=== PATIENT | male | born 1955 | race Caucasian/White ===

== ENCOUNTER 2018-01-06 16:32 | Emergency (ER) | payer SELFPAY ==
[~2018-01-06] VITALS: Ht 177.8 cm; Wt 102.1 kg
[2018-01-06 16:32] VITALS: BP 157/113
--- NOTE | 2018-01-06 18:54 | ED.ADGEN ---
Past History Past Medical History: Other Past Surgical History: Other Alcohol Use: Occasionally Drug Use: None Adult General Chief Complaint Chief Complaint ".. I was cutting a water melon.. and slice my Rt. thumb and nail..."..." I happen just before I came in..." HPI HPI Patient is a 62 year old male who presents with above hx and 3 cm laceration to right thumb nail. The laceration is shallow however does go through the nail and into the underlying nail soft tissue. Distal neurovascular intact. Patient does not return his last tetanus. Patient is ambidextrous. 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 No history immunosuppression. Normally healthy. Has follow-up primary care. Review of Systems Review of Systems Constitutional: Denies fever or chills [] Eyes: Denies change in visual acuity, redness, or eye pain [] HENT: Denies nasal congestion or sore throat [] Respiratory: Denies cough or shortness of breath [] Cardiovascular: No additional information not addressed in HPI [] GI: Denies abdominal pain, nausea, vomiting, bloody stools or diarrhea [] : Denies dysuria or hematuria [] Musculoskeletal: Denies back pain or joint pain [] Integument: Denies rash or skin lesions []complaints of laceration of right thumb nail Neurologic: Denies headache, focal weakness or sensory changes [] Endocrine: Denies polyuria or polydipsia [] All other systems were reviewed and found to be within normal limits, except as documented in this note. Family History Family History Noncontributory Current Medications Current Medications Current Medications Medications (Trade) Dose Ordered Sig/[facility] Start Time Stop Time Status Last Admin Dose Admin Tetanus/ Diphtheria Toxoids Adsorbed (Tenivac Vial) 0.5 ml ONCE ONCE 01/06/18 19:00 01/06/18 19:01 DC 01/06/18 19:06 0.5 ML See nursing for home meds Allergies Allergies Allergies Coded Allergies Type Severity Reaction Last Updated Verified Penicillins Allergy Unknown 01/06/18 Yes ibuprofen Allergy Unknown 01/06/18 Yes iodine Allergy Unknown 01/06/18 Yes Physical Exam Physical Exam Constitutional: Well developed, well nourished, no acute distress, non-toxic appearance. [] HENT: Normocephalic, atraumatic, bilateral external ears normal, oropharynx moist, no oral exudates, nose normal. [] Eyes: PERRLA, EOMI, conjunctiva normal, no discharge. [] Neck: Normal range of motion, no tenderness, supple, no stridor. [] Cardiovascular:Heart rate regular rhythm, no murmur [] Lungs & Thorax: Bilateral breath sounds clear to auscultation [] Abdomen: Bowel sounds normal, soft, no tenderness, no masses, no pulsatile masses. [] Skin: Warm, dry, no erythema, no rash. [] Laceration as per history of present illness Back: No tenderness, no CVA tenderness. [] Extremities: No tenderness, no cyanosis, no clubbing, ROM intact, no edema. [] Neurologic: Alert and oriented X 3, normal motor function, normal sensory function, no focal deficits noted. [] Psychologic: Affect normal, judgement normal, mood normal. [] Current Patient Data Vital Signs Vital Signs Date Time Temp Pulse Resp B/P (MAP) Pulse Ox O2 Delivery O2 Flow Rate FiO2 01/06/18 16:32 98.3 52 18 95 Room Air EKG EKG [] Radiology/Procedures Radiology/Procedures [] Course & Med Decision Making Course & Med Decision Making Pertinent Labs and Imaging studies reviewed. (See chart for details). Wound wash with surgical soap. Saline and peroxide. Application of tissue loose. And dressing applied. Keep laceration clean and dry. Do not apply ointment to laceration. Will dissolved to glue. The removed dressing becomes wet or dirty. Follow-up primary care. Monitor for infection. Patient informed he'll take a long time for the nail to grow out. Patient return if any concerns. [] Final Impression Final Impression 1. 3 cm laceration, thumb nail of right hand[] Dragon Disclaimer Dragon Disclaimer This electronic medical record was generated, in whole or in part, using a voice recognition dictation system. NIESHA CAMPOS MD Jan 06, 2018 18:54
[2018-01-06] MEDS ORDERED: TETANUS AND DIPHTHERIA TOX/PF 0.5 ML VIAL. VAX IM ONE (19:00)
== END 2018-01-06 19:10 | disposition home or self-care (01) ==
LOC: ER 16:32
DX: S61.011A Laceration without foreign body of right thumb without damage to nail, initial encounter (principal); Z88.0 Allergy status to penicillin; Z88.6 Allergy status to analgesic agent; Z91.041 Radiographic dye allergy status; W26.0XXA Contact with knife, initial encounter; Y93.89 Activity, other specified; Y92.89 Other specified places as the place of occurrence of the external cause; Y99.8 Other external cause status
CPT/HCPCS: 12002; 90471; 90714; 99283-25

== ENCOUNTER 2021-01-22 17:14 | Inpatient (IN) | payer OTHER ==
[~2021-01-22] VITALS: Ht 181.6 cm; Wt 113.2 kg
--- NOTE | 2021-01-22 17:37 | PHYS DOC ---
Past History Past Medical History: No Pertinent History, Other (BRODERICK PAN DO) Past Surgical History: Other (BRODERICK PAN DO) Smoking: Non-smoker Alcohol Use: Rarely Drug Use: None (BRODERICK PAN DO) Adult General Chief Complaint Chief Complaint: SHORTNESS OF BREATH HPI HPI Patient is a 65-year-old male presenting for Covid complications. Reports he is otherwise healthy with no known medical diagnoses, no medications on a daily basis. Reports he started feeling extremely weak and fatigued approximately 7 days ago. He waited several days and then on Saturday, 4 days ago, he finally got checked at an outlying facility where he tested positive for Covid. Denies any fever, loss of taste or smell, or GI symptoms. Does admit muscle aches, fatigue, and URI symptoms. Reports he has been trying to provide supportive care to himself utilizing ibuprofen and Tylenol at home without significant relief. What prompted him to come in to ER for evaluation today was the fact that his O2 sat on finger pulse ox at home was averaging ~88% at rest and worsened with movement. He did not receive any COVID-19 vaccinations (BRODERICK PAN DO) Review of Systems Review of Systems Fourteen body systems of review of systems have been reviewed. See HPI for per tinent positives and negative responses, other huerta all other systems are negative, non-pertinent or non-contributory (BRODERICK PAN DO) Allergies Allergies Allergies Coded Allergies Type Severity Reaction Last Updated Verified Penicillins Allergy Unknown 01/06/18 Yes ibuprofen Allergy Unknown 01/06/18 Yes iodine Allergy Unknown 01/06/18 Yes (BRODERICK PAN DO) Physical Exam Physical Exam General: Appears fatigued, non toxic, and comfortable Skin: Warm, dry. Normal for ethnicity. HEENT: Atraumatic. PERRLA. Rhinorrhea and congestion. Nasal turbinates boggy b/l. Moist mucous membranes. Uvula midline. Maintaining secretions. No phonation changes. Neck: Trachea midline. Normal ROM. No stridor. Respiratory: Normal WOB. CTAB w/o w/r/r. No tachypnea. Cardiovascular: Regular rate and rhythm. Normal peripheral perfusion. Abdomen: Soft. Non tender. No distension. Back: Normal ROM. Musculoskeletal: No swelling or deformity. Neuro: Alert and oriented x 4. MAEE. Lymph: No cervical LAD. Psych: Normal affect and mood. (BRODERICK PAN DO) Current Patient Data Vital Signs Vital Signs Date Time Temp Pulse Resp B/P (MAP) Pulse Ox O2 Delivery O2 Flow Rate FiO2 01/22/21 17:14 99.8 70 18 133/77 (95) 89 Room Air 01/22/21 17:53 2.0 Vital Signs Date Time Temp Pulse Resp B/P (MAP) Pulse Ox O2 Delivery O2 Flow Rate FiO2 01/24/21 10:20 93 24 92 Nasal Cannula 2.0 01/24/21 10:00 136/74 (94) 01/24/21 06:00 99.2 (BRODERICK PAN DO) EKG EKG EKG ordered and interpreted by myself at 1735 hrs. is sinus rhythm at 68 bpm, unremarkable intervals, left axis deviation, no acute ischemic findings, no STEMI (BRODERICK PAN DO) Radiology/Procedures Radiology/Procedures [] (BRODERICK PAN DO) Impressions: PROCEDURE: XR CHEST 1V.01/22/2021 6:30 PM REASON FOR STUDY: Reason: SHOB / Spl. Instructions: / History: . COMPARISON: None. FINDINGS: There are patchy bilateral infiltrates most evident in the mid and lower lungs. No pleural fluid is seen. The heart is not grossly enlarged. IMPRESSION: Bilateral infiltrates. Electronically signed by: Amy Sauceda Jr., MD (01/22/2021 6:31 PM) [facility] DICTATED AND SIGNED BY: AMY SAUCEDA Jr, MD DATE: 01/22/21 1830 CC: REG GARCIA DO; BRODERICK PAN DO; PCP,UNKNOWN ~MTH0 0 (REG GARCIA DO) Heart Score C/O Chest Pain: No Risk Factors: Risk Factors: DM, Current or recent (<one month) smoker, HTN, HLP, family history of CAD, obesity. Risk Scores: Risk Factors: DM, Current or recent (<one month) smoker, HTN, HLP, family history of CAD, obesity. (BRODERICK PAN DO) C/O Chest Pain: N/A (DIXIE DOWELL MD) Course & Med Decision Making Course & Med Decision Making Airway patent, breathing unlabored, IV access and vitals obtained concerning for hypoxia on room air at 88% while at rest HPI, physical exam and diagnostic work-up started. At this time in care, my shift is ending. Comprehensive signout given to oncoming physician. Please de jerardo to Dr. Christainsen's documentation regarding future care of patient in ER setting (BRODERICK PAN DO) Course & Med Decision Making The patient's chest x-ray is significant for bilateral infiltrates consistent with COVID-19. He is requiring supplemental oxygen. I will admit him to the hospital. I spoke with Dr. Frey and he has recommended the patient be transferred to [facility]. Spoke with Dr. Mabry and he has accepted the patient for transfer and admission. The patient will go by ambulance. (REG GARCIA DO) Course & Med Decision Making Patient pending transfer to [facility] at shift change. 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 Frey who will accept patient in this facility. (DIXIE DOWELL MD) Dragon Disclaimer Dragon Disclaimer This electronic medical record was generated, in whole or in part, using a voice recognition dictation system. (BRODERICK PAN DO) Departure Departure: Impression: Primary Impression: COVID-19 Additional Impression: Bilateral pneumonia Disposition: ADMITTED INPATIENT Admitting Physician: Severino Frey (DIXIE DOWELL MD) Condition: STABLE Referrals: PCP,UNKNOWN (PCP) Problem Qualifiers BRODERICK PAN DO Jan 22, 2021 17:37 REG GARCIA DO Jan 22, 2021 18:55 DIXIE DOWELL MD Jan 23, 2021 09:44
[2021-01-22] MEDS ORDERED: IV NORMAL SALINE 1,000ML 1,000 ML IV SCH (17:45)
--- NOTE | 2021-01-22 17:50 | EKG ---
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
--- NOTE | 2021-01-22 18:33 | RAD ---
PROCEDURE: XR CHEST 1V.01/22/2021 6:30 PM REASON FOR STUDY: Reason: SHOB / Spl. Instructions: / History: . COMPARISON: None. FINDINGS: There are patchy bilateral infiltrates most evident in the mid and lower lungs. No pleural fluid is seen. The heart is not grossly enlarged. IMPRESSION: Bilateral infiltrates. Electronically signed by: Pablo Sauceda Jr., MD (01/22/2021 6:31 PM) [facility]IC[facility]sen[facility]
[2021-01-22 18:45] LABS: BASO % 0 % (0-3); EOS % 0 % (0-3); HEMATOCRIT 44.7 % (39.0-53.0); HEMOGLOBIN 15.2 g/dL (13.0-17.5); LYMPH # 0.9 x10^3/uL (1.0-4.8); LYMPH % 11 % (24-48); MEAN CORPUSCULAR HEMOGLOBIN 31 pg (25-35); MEAN CORPUSCULAR HGB CONC 34 g/dL (31-37); MEAN CORPUSCULAR VOLUME 91 fL (79-100); MONO # 0.7 x10^3/uL (0.0-1.1); MONO % 9 % (0-9); NEUT # 6.3 x10^3uL (1.8-7.7); NEUT % 80 % (31-73); PLATELET COUNT 201 x10^3/uL (140-400); RED BLOOD COUNT 4.89 x10^6/uL (4.30-5.70); RED CELL DISTRIBUTION WIDTH 13.3 % (11.5-14.5); WHITE BLOOD COUNT 7.9 x10^3/uL (4.0-11.0)
[2021-01-22 18:56] LABS: CALCIUM 8.2 mg/dL (8.5-10.1); CREATININE 0.8 mg/dL (0.7-1.3); GFR 97.3; POTASSIUM 4.2 mmol/L (3.5-5.1)
[2021-01-22 19:11] LABS: ALBUMIN 3.1 g/dL (3.4-5.0); ALBUMIN/GLOBULIN RATIO 0.8 (1.0-1.7); TOTAL BILIRUBIN 0.4 mg/dL (0.2-1.0); TOTAL PROTEIN 7.2 g/dL (6.4-8.2)
[2021-01-22] MEDS ORDERED: AZITHROMYCIN 500 MG VIAL. IV ONE (19:22)
[2021-01-22] MEDS ORDERED: cefTRIAXone SODIUM 1 GM VIAL ONE (19:22)
[2021-01-22] MEDS ORDERED: IV NORMAL SALINE 250ML 250 ML ONE (19:22)
[2021-01-22] MEDS ORDERED: IV NORMAL SALINE 50ML 50 ML ONE (19:22)
[2021-01-22] MEDS ORDERED: DEXAMETHASONE SOD PHOS 10 MG/ML VIAL. IVP ONE (19:45)
[2021-01-22] MEDS ORDERED: AZITHROMYCIN 500 MG in IV NORMAL SALINE 250ML 250 ML IV ONE (20:15)
[2021-01-22 20:23] LABS: % BANDS 5 % (0-9); % LYMPHS 11 % (24-48); % MONOS 9 % (0-10); % SEGS 75 % (35-66)
[2021-01-22 20:24] LABS: PLT ESTIMATE ADEQUATE (ADEQUATE)
[2021-01-22 20:40] LABS: COLOR,URINE YELLOW
[2021-01-22 20:41] LABS: BACTERIA,URINE 0 /HPF (0-FEW); BILIRUBIN,URINE NEG (NEG); CLARITY,URINE CLEAR; GLUCOSE,URINE NEG (NEG); NITRITE,URINE NEG (NEG); RBC,URINE 0 /HPF (0-2); UROBILINOGEN,URINE 0.2 mg/dL (0.2 mg/dL); WBC,URINE 0 /HPF (0-4)
[2021-01-23] MEDS ORDERED: ONDANSETRON PF 4 MG/2 ML VIAL. IVP PRN (08:45)
[2021-01-23] MEDS ORDERED: ACETAMINOPHEN 325 MG TABLET PO PRN ×2 (08:45→14:15)
--- NOTE | 2021-01-23 11:38 | HP ---
ATTENDING PHYSICIAN: Dr. Frey. CHIEF COMPLAINT: Shortness of breath. HISTORY OF PRESENT ILLNESS: The patient is a 65-year-old gentleman, otherwise healthy. He was diagnosed with COVID-19 infection a week ago. He waited several days, was not doing too bad. He got checked in outlying facility, tested positive for COVID. He was sent home. He has an oximeter at home, averaging 88%. He came to the ED. He has had a dry nonproductive cough, low-grade fevers. Chest x-ray demonstrated diffuse patchy infiltrates in both the lower lobes. He is admitted then with worsening symptoms of hypoxemia related to COVID-19 exposure. Unfortunately, he has not been vaccinated. PAST MEDICAL HISTORY: Unremarkable for any chronic illnesses. He has no prescription meds. There is no history of diabetes or hypertension. ALLERGIES: He has allergies to PENICILLIN, IBUPROFEN, IODINE, exact reaction is unclear. MEDICATIONS: No prescription meds. SOCIAL HISTORY: He is a nonsmoker. He drinks socially. FAMILY HISTORY: His mom and dad are still alive in their mid 80s and fairly healthy. He is , 2 grown children are alive and healthy. REVIEW OF SYSTEMS: Significant for the COVID exposure a week ago. He has not been vaccinated. No nausea, vomiting or diarrhea. He still has a sense of taste. All other systems reviewed and determined to be negative. PHYSICAL EXAMINATION: GENERAL: When I saw him, this is a pleasant, middle-aged male. INITIAL VITAL SIGNS: Initial vital signs showed a blood pressure 121/73, pulse is 60 and regular. He was afebrile. Oxygen saturation now is 92% on 2 liters by nasal cannula. HEENT: Head is without trauma. Pupils are reactive. Sclerae nonicteric. Oropharynx is clear. NECK: Supple, no bruits. LUNGS: Minimal rhonchi at the bases. CARDIOVASCULAR: Regular heart tones. No obvious gallops. Peripheral pulses are palpable and full. ABDOMEN: Soft, nontender to palpation. Bowel sounds are normoactive. EXTREMITIES: Show no cyanosis or edema. NEUROLOGIC FINDINGS: Focally intact. PERTINENT LABORATORY STUDIES: Hemoglobin is 15.2 g/dL with a white count of 7900. His sodium is 129 mEq, potassium 4.2, creatinine 0.8 mg%. Nonfasting blood sugar 155. Cardiac enzymes negative. Transaminases were normal. Urinalysis was clear. ASSESSMENT: 1. A 65-year-old gentleman with COVID-19 pneumonia bilaterally. 2. Hypoxemia requiring supplemental oxygen. PLAN: 1. Admit to the inpatient unit. 2. Intravenous Solu-Medrol has been ordered, I do want to give him some larger doses and the recommended Decadron. 3. We should try to wean him down supplemental oxygen. 4. Empiric Lovenox. MIRIAM/JEFF DR: Alysia TID: [id number]
[2021-01-23 12:15] VITALS: BP 153/84
--- NOTE | 2021-01-23 13:02 | NUR ---
PATIENT IS 65 Y O MALE ARRIVED VIA EMS. PATIENT IS A/O X 4, CALM AND COOPERATIVE UPON ASSESSMENT. PATIENT C/O WEAKNESS AND FATIGUE, DENIED PAIN, DENIED NAUSEA. PATIENT ORIENTED TO THE ROOM AND HOSPITAL POLICIES. PATIENT IS CURRENTLY IN A BED RESTING .
[2021-01-23] MEDS ORDERED: ENOXAPARIN 30 MG/0.3 ML SYRINGE. SQ SCH (13:30)
[2021-01-23 15:22] VITALS: BP 143/83
[2021-01-23 18:20] VITALS: BP 139/76
[2021-01-23 18:52] VITALS: BP 139/76
[2021-01-23] MEDS: methylPREDNISolone SOD SUCC PF 40 MG/ML VIAL. IV SCH (20:45)
[2021-01-23] MEDS ORDERED: AZITHROMYCIN 500 MG in IV NORMAL SALINE 250ML 250 ML IV SCH (21:00)
[2021-01-23 22:02] VITALS: BP 125/72
[2021-01-24 05:59] LABS: BASO % 0 % (0-3); EOS % 0 % (0-3); HEMATOCRIT 44.3 % (39.0-53.0); HEMOGLOBIN 14.8 g/dL (13.0-17.5); LYMPH # 1.2 x10^3/uL (1.0-4.8); LYMPH % 11 % (24-48); MEAN CORPUSCULAR HEMOGLOBIN 31 pg (25-35); MEAN CORPUSCULAR HGB CONC 33 g/dL (31-37); MEAN CORPUSCULAR VOLUME 92 fL (79-100); MONO # 0.9 x10^3/uL (0.0-1.1); MONO % 8 % (0-9); NEUT # 9.4 x10^3uL (1.8-7.7); NEUT % 81 % (31-73); PLATELET COUNT 244 x10^3/uL (140-400); RED BLOOD COUNT 4.83 x10^6/uL (4.30-5.70); RED CELL DISTRIBUTION WIDTH 13.6 % (11.5-14.5); WHITE BLOOD COUNT 11.5 x10^3/uL (4.0-11.0)
[2021-01-24 06:00] VITALS: BP 108/67
[2021-01-24 06:09] LABS: CALCIUM 8.3 mg/dL (8.5-10.1); CREATININE 0.8 mg/dL (0.7-1.3); GFR 97.3; POTASSIUM 4.5 mmol/L (3.5-5.1)
[2021-01-24 10:00] VITALS: BP 136/74
[2021-01-24] MEDS: methylPREDNISolone SOD SUCC PF 40 MG/ML VIAL. IV SCH (10:27)
--- NOTE | 2021-01-24 12:16 | DS ---
DATE OF DISCHARGE: 01/24/2021 ATTENDING PHYSICIAN: Dr. Frey. FINAL DISCHARGE DIAGNOSES: 1. COVID-19 pneumonia. 2. Hypoxemia, requiring supplemental oxygen. 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 He came down with flu-like symptoms. He was tested positive for coronavirus a week ago. He was doing well at home, but he got more short of breath in the ED on this admission. He is about 9 days out. He had diminished saturation. Chest x-ray showed patchy infiltrates, both lower lobes. His oxygen saturations were marginal at 88%. He required 2 liters of supplemental oxygen. He was admitted for further treatment and evaluation. PHYSICAL EXAMINATION: Please see the dictated note. PERTINENT LABORATORY AND X-RAY STUDIES: Admission hemoglobin was 15.2 g/dL with a white count of 7900. Electrolytes: Sodium 122, repeat was 134 mEq; creatinine was normal. Nonfasting blood sugar 148. Cardiac enzymes negative. Transaminases are normal. IMAGING STUDIES: Chest x-ray showed patchy bilateral infiltrates in the lower lobes, small pleural effusions identified. COURSE IN THE HOSPITAL: The patient was admitted. He was started on supplemental oxygen. We ordered empiric Solu-Medrol as well as Lovenox. He did well. By the second hospital day, he was moving airways well. He wanted to go home to supplement with supplemental oxygen. Arrangements were made for oxygen to be delivered to his house at 2 liters by nasal cannula. He will follow up with his PCP. I did write a script for prednisone 40 mg p.o. daily. He understands quarantine precautions. The patient was then discharged from our hospital in stable condition with explicit drug and followup care. Total discharge time spent was 39 minutes. TIANNA ENNIS: Alysia TID: [id number]
[2021-01-24] MEDS ORDERED: LACTOBACILLUS RHAMNOSUS GG 1 CAPSULE. PO SCH (21:00)
== END 2021-01-24 13:42 | disposition home or self-care (01) | DRG 177 ==
LOC: ER 17:14 → ICU 01-23 08:43 → 1 SOUTH 01-23 09:32
PROVIDERS: ADMIT Hospitalist; ATTEND Hospitalist
DX: U07.1 COVID-19 (principal); J12.82 Pneumonia due to coronavirus disease 2019; R09.02 Hypoxemia; Z88.0 Allergy status to penicillin; Z88.8 Allergy status to other drugs, medicaments and biological substances
CPT/HCPCS: 36415; 71045; 80048; 80053; 81001; 82550; 82803; 83605; 83880; 84484; 85007; 85025; 87040; 93005; 96365; 96366; 96368; 96375; J0456; J0696; J1100; J1650; J2920; J7050; 99285-25; J7030